=== PATIENT | female | born 1985 | race Caucasian/White ===

== ENCOUNTER → 2017-11-10 19:32 | Observation (INO) ==
[2017-11-10 16:46] LABS: Bilirubin,Urine Negative (Negative); Blood,Urine Negative (Negative); Clarity,Urine Cloudy (Clear); Color,Urine Yellow (Yellow); Glucose,Urine (UA) Normal (Normal); Ketones,Urine 15 mg/dL (Negative); Leukocyte Esterase,Urine Moderate (Negative); Nitrite,Urine Negative (Negative); PH,Urine 6.5 pH Units (5.0-8.0); Protein,Urine 30 mg/dL (Neg-Trace); Specific Gravity,Urine 1.021 (1.010-1.025); Urobilinogen,Urine Normal (Normal)
--- NOTE | 2017-11-10 16:47 | OB/GYN Progress Note ---
Date of Encounter: 11/10/17 Time of Encounter: 16:41 - Assessment and Plan (1) 30 weeks gestation of Current Visit: Yes Status: Acute Patient receives routine care with no history of delivery (2) contractions Current Visit: Yes Status: Acute contractions without cervical dilation. Trial of subcutaneous terbutaline. fibronectin a vaginosis panel pending. Urinalysis pending. Subjective - Subjective Principal diagnosis: 30 weeks w/ cramping Interval history: The patient reports that since 12:30 this afternoon she has had irregular contractions every 9-15 minutes. She reports normal activity. She denies any abnormal vaginal discharge, dysuria or urinary frequency, vaginal bleeding or loss of fluid. She reports no recent intercourse, any change in GI symptoms, specifically denies diarrhea, nausea or vomiting. She does state that she has felt short of breath for the last 4 days intermittently,feeling like it is consistent with changes. She denies any chest pain. She has had mild lower extremity swelling which is equal and bilateral. Antepartum ROS: movement normal, contractions, no loss of fluid, no vaginal bleeding Objective - Vital Signs Vital Signs: Intake and Output 11/10/17 11/10/17 11/10/17 07:59 15:59 23:59 Other: Weight 94.5 kg Patient Weight 11/10/17 23:59 Weight 94.5 kg - Exam FHR: category 1 (140s baseline) Auscultation: bilateral: normal Abdomen: Present: soft, gravid, tenderness (suprapubic) Cervical dilation: closed Cervix effacement: thick station: -3 Comments: Vaginosis panel and fibronectin obtained - Allied health notes Allied health notes reviewed: nursing
[2017-11-10 16:48] LABS: Bacteria,Urine Many per hpf (None-Few); RBC,Urine 0-3 per hpf (0-3); Squamous Epithelial Cell,Urine Many per lpf (None-Few); WBC,Urine 50-100 per hpf (0-3)
[2017-11-10 17:00] LABS: Amphetamine Screen,Urine Negative ng/mL (Cutoff=1000); Barbiturate Screen,Urine Negative ng/mL (Cutoff=200); Benzodiazepines Screen,Urine Negative ng/mL (Cutoff=200); Cannabinoid Screen,Urine Negative ng/mL (Cutoff = 50); Cocaine Screen,Urine Negative ng/mL (Cutoff= 300); Opiate Screen,Urine Negative ng/mL (Cutoff=300); Phencyclidine Screen,Urine Negative ng/mL (Cutoff=25)
[2017-11-10 18:47] LABS: Candida DNA Not Detected (Not Detect); Gardnerella DNA Not Detected (Not Detect); Trichomonas DNA Not Detected (Not Detect)
[~2017-11-10 19:32] MED LIST: Terbutaline 1 MG/ML VIAL SQ ONE
== END | disposition home or self-care (01) ==
LOC: 1NENULAB
PROVIDERS: ADMIT Obstetrics & Gynecology; ATTEND Obstetrics & Gynecology

== ENCOUNTER → 2017-12-27 18:13 | Observation (INO) ==
[2017-12-27 16:30] LABS: Amphetamine Screen,Urine Negative ng/mL (Cutoff=1000); Barbiturate Screen,Urine Negative ng/mL (Cutoff=200); Benzodiazepines Screen,Urine Negative ng/mL (Cutoff=200); Cannabinoid Screen,Urine Negative ng/mL (Cutoff = 50); Cocaine Screen,Urine Negative ng/mL (Cutoff= 300); Opiate Screen,Urine Negative ng/mL (Cutoff=300); Phencyclidine Screen,Urine Negative ng/mL (Cutoff=25)
[2017-12-27 18:03] LABS: Bilirubin,Urine Negative (Negative); Blood,Urine Negative (Negative); Clarity,Urine Cloudy (Clear); Color,Urine Yellow (Yellow); Glucose,Urine (UA) Normal (Normal); Ketones,Urine Trace mg/dL (Negative); Leukocyte Esterase,Urine Trace (Negative); Nitrite,Urine Negative (Negative); Protein,Urine Trace mg/dL (Neg-Trace); Specific Gravity,Urine 1.012 (1.010-1.025); Urobilinogen,Urine Normal (Normal)
--- NOTE | 2017-12-27 18:05 | OB/GYN Progress Note ---
Date of Encounter: 12/27/17 Time of Encounter: 18:02 - Assessment and Plan (1) 36 weeks gestation of Current Visit: Yes Status: Acute (2) Uterine contractions Current Visit: Yes Status: Acute No cervical change on serial cervical exams over 2 hours apart. Patient dexter every 2-3 minutes looking slightly uncomfortable with contractions, patient given option of staying longer for further evaluation or discharge home. Patient states she would rather discharge home and return if contractions become stronger. Discussed with patient importance of hydration due to being outside in hot weather and sun. Discharged home with labor and when to return to triage precautions. Patient verbalizes understanding Subjective - Subjective Interval history: 36+6 weeks gestation. Presents to triage with complaints of contractions. Patient without today and a soft ball game and started having contractions, they became closer together and more intense. Reports good movement, denies leaking of fluid or vaginal bleeding. Antepartum ROS: movement normal, contractions, no loss of fluid, no vaginal bleeding Objective - Vital Signs Vital Signs: Intake and Output 12/27/17 12/27/17 12/27/17 07:59 15:59 23:59 Other: Weight 97.976 kg Patient Weight 12/27/17 23:59 Weight 97.976 kg - Exam FHR: auscultation normal FHR comments: Baseline 135 Abdomen: Present: soft, gravid Cervical dilation: 3-4/80/-2
[2017-12-27 18:06] LABS: Bacteria,Urine Moderate per hpf (None-Few); Hyaline Casts,Urine Few per lpf (None-Few); Squamous Epithelial Cell,Urine Many per lpf (None-Few)
== END | disposition home or self-care (01) ==
LOC: 1NENULAB
PROVIDERS: ADMIT Advanced Practice Midwife; ATTEND Advanced Practice Midwife

== ENCOUNTER 2017-12-28 18:35 | Inpatient (IN) ==
--- NOTE | 2017-12-28 15:33 | OB/GYN History & Physical ---
Date of Encounter: 12/28/17 Time of Encounter: 15:29 Assessment and Plan (1) 37 weeks gestation of Current visit: Yes Status: Acute Admit to labor and delivery for observation of labor Expectant management Labs - CBC and clot to hold Continuous electronic monitoring Pain management plan-epidural Anticipate Dr. Gillette is OB gas operations analyst and available as needed (2) Uterine contractions during Current visit: Yes Status: Acute History of Present Illness Chief complaint: contractions HPI: Ms. Fischer is a 32 year old female with an estimated date of of 01/18/18 at 37 weeks 0 days gestation dated by early ultrasound. She presents with reports of contractions that started around noon yesterday and have increased in frequency and severity beginning at 11 this morning.. She denies leakage of fluid and vaginal bleeding and reports positive movement. Her course has been uncomplicated. She has been seen primarily by Dr. Carter. records are available in her chart and have been reviewed. Labs: AB- GBS- Hep B- HIV- T. Palladium- Rubella immune Varicella immune Past Med Surg Social Fam HX - Past Medical History Medical history: asthma Psychiatric history: no psych history - Past Surgical History Surgical History: other - Social History Smoking Status: Former smoker Smokeless Tobacco Status: No Alcohol use: none Drug use: none - Family History Mother Living Status: Still Living Hx Family Cardiac Disorders: Yes ([place]) Hx Family Respiratory Disorders: No Hx Family Cancer: Yes (Breast) Hx Family GI Disorders: No Hx Family Genitourinary Disorders: No Hx Family Endocrine Disorder: No Hx Family Musculoskeletal Disorders: No Hx Family Neuromuscular Disorders: No Hx Family Neurologic Disorders: No Hx Family HEENT Disorders: No Hx Family Autoimmune Disorders: No Hx Family Reproductive Disorders: No Hx Family Psychosocial Disorders: No Hx Family Medical Disorders: No Obstetrical History - Pregnancies : 4 Para: 1 Term: 1 (07/31/2007, vaginal delivery, 39 weeks, male, 7#12oz) : 0 Ab's: 2 (09/24/12 miscarriage;01/03/13 d&c) Livin Medications and Allergies Flintstones 2 tab PO DAILY 11/10/17 [History] 3 Allergy/AdvReac Type Severity Reaction Status Date / Time Amoxicillin Allergy Hives Verified 07/26/17 09:25 azithromycin AdvReac Nausea Verified 12/28/17 15:22 [From Zithromax Z-Lee] Review of System OB All systems PM: reviewed and no additional remarkable complaints except as stated Exam - Constitutional Constitutional: well developed, well nourished, average body habitus, mild distress - HEENT HEENT: PERRL - Neck Neck exam: full ROM - Lungs Respiratory exam: CTAB - Cardiovascular Cardiovascular exam: RRR, +S1, +S2 - Breasts Breast: bilateral: normal - Abdomen Abdomen: Present: bowel sounds normal, gravid, non tender - Extremities Extremities exam: pedal edema, warm, radial pulses palpable and symmetrical - Vulva Vulva: bilateral: normal - Vagina Vagina: Present: normal moisture - Cervix Dilation: 5 Effacement: 60 Station: -3 - Uterus Uterus exam: Present: normal size, normal contour - Anus/Rectum Anus/Rectum: Present: normal perianal skin Results All other labs normal.
[2017-12-28 18:08] LABS: Amphetamine Screen,Urine Negative ng/mL (Cutoff=1000); Barbiturate Screen,Urine Negative ng/mL (Cutoff=200); Benzodiazepines Screen,Urine Negative ng/mL (Cutoff=200); Cannabinoid Screen,Urine Negative ng/mL (Cutoff = 50); Cocaine Screen,Urine Negative ng/mL (Cutoff= 300); Opiate Screen,Urine Negative ng/mL (Cutoff=300); Phencyclidine Screen,Urine Negative ng/mL (Cutoff=25)
[~2017-12-28 18:35] MED LIST changes: +*HR* Nalbuphine 10 MG/ML AMPUL IVP PRN; +Famotidine 20 MG/2 ML VIAL IVP PRN; +Naloxone 0.4 MG/ML INJ IVP PRN; +Ondansetron 4 MG/2 ML VIAL IVP PRN; -Terbutaline 1 MG/ML VIAL SQ ONE
[2017-12-28] MEDS ORDERED: Ringers Solution, Lactated 1,000 ML ONE (18:40)
[2017-12-28] MEDS ORDERED: Ringers Solution, Lactated 1,000 ML IVC SCH (18:45)
[2017-12-28 19:08] LABS: Basophils % 0.3 %; Eosinophils % 0.3 %; Hematocrit 29.4 % (35.3-44.9); Hemoglobin 10.1 g/dL (11.5-15.4); Immature Granulocytes % 0.4 % (0-4); Lymphocytes # 1.5 K/mcL (0.6-4.6); Lymphocytes % 19.9 %; Mean Corpuscular HGB Conc 34.4 g/dL (31.6-35.5); Mean Corpuscular Hemoglobin 30.1 pg (28.0-33.3); Mean Corpuscular Volume 87.5 fL (83.0-100.0); Mean Platelet Volume 9.7 fL (9.4-12.4); Monocytes # 0.5 K/mcL (0.0-1.3); Monocytes % 7.1 %; Neutrophils # 5.2 K/mcL (1.6-8.9); Platelet Count 291 K/mcL (140-400); Red Blood Count 3.36 M/mcL (3.82-4.97); Red Cell Distribution Width 12.9 % (11.5-14.5)
[2017-12-28] MEDS ORDERED: Bupivacaine-MPF 0.25% 10 ML VIAL EP ONE (19:36)
[2017-12-28] MEDS ORDERED: *HR* FentaNYL (PF) 100 MCG/2 ML VIAL EP ONE (19:36)
[2017-12-28] MEDS ORDERED: Epidural Premix (fent/bupiv) 110 ML EP SCH (19:45)
[2017-12-28] MEDS ORDERED: Epidural Premix (fent/bupiv) 110 ML EP ONE (19:47)
--- NOTE | 2017-12-28 20:55 | Anesthesia Evaluation PreOp ---
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 Epidural with previous , no probs. No FHAP.) : Yes Alcohol Use: none Drug use: none Medications and Allergies Flintstones 2 tab PO DAILY 11/10/17 [History] 3 Allergy/AdvReac Type Severity Reaction Status Date / Time Amoxicillin Allergy Hives Verified 07/26/17 09:25 azithromycin AdvReac Nausea Verified 12/28/17 15:22 [From Zithromax Z-Lee] - Meds/Allergy Pre-op Review Medications Reviewed: Yes Allergies Reviewed: Yes Beta Blockers on Current Med List: No Anesthesia Results - Labs 12/28/17 18:57 Anesthesia Exam VSS and FHTs stable. 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
--- NOTE | 2017-12-28 20:59 | Anesthesia Procedures ---
Date of Encounter: 12/28/17 Time of Encounter: 19:50 Procedures: Anesthesia - Epidural/Spinal Patient ID/Chart reviewed: Yes Patient examined: Yes OB Eval: Gestational age: 37 OB Eval: : 2 OB Eval: Hx Para: 1 OB Eval: Dilated at (cm): 6 OB Eval: Contractions: Non-stressed pattern Consent Obtained: Yes Supplemental Oxygen: None/Room Air Site Prep: Aseptic Technique, Sterile prep and drape, Povidone-Iodine 1% Patient position: upright Local Anesthetic: Lidocaine 1% Amount of Local Anesthetic used: 5 Touhy Needle Gauge: 18 Touhy Needle Depth (cm): 5 Catheter Depth at Skin (cm): 16 Test Dose (1.5% Lido + Epi): Volume given (mls): 3 Test Dose Result: Negative Loading Dose: 0.25% Marcaine (mls): 8 Loading Dose: Fentanyl (mcg): 100 Loading Dose Administered: Thru Catheter Infusion Med: 0.125% Bupivacaine w/ 2 mcg/ml Fentanyl Infusion Rate (mls/hr): [address]: Tegaderm, Tape Interspace Used: L3-L4 Loss of Resistance (CARY): Yes Blood: No CSF: No Paresthesia: No Vitals + FHT's: 3 Vital Signs Time 1950 2005 2009 2014 BP 138/84 135/74 125/67 116/61 Pulse 105 93 84 92 FHTs 120 120 130 130
--- NOTE | 2017-12-28 21:22 | OB Labor Progress Note ---
Date of Encounter: 12/28/17 Time of Encounter: 21:20 Labor Progress Note - Subjective Subjective: Patient comfortable with epidural. - Cervix Cervix: 6-7/60/-2 - Heart Tones Heart Tones: Baseline 130 Moderate variability Accelerations present 15 x 15 Few decelerations with 1 deep deceleration FHR category II - [place]: Contractions every 2-5 minutes and palpate moderate - Interventions Interventions: SVE Peanut ball - Plan Plan: Continue expectant management Use peanutball for frequent position changes Anticipate spontaneous vaginal delivery
--- NOTE | 2017-12-28 23:12 | OB Labor Progress Note ---
Date of Encounter: 12/28/17 Time of Encounter: 23:10 Labor Progress Note - Subjective Subjective: Patient remains comfortable with epidural. - Cervix Cervix: 6-7/60/-2 - Heart Tones Heart Tones: Baseline 130 Moderate variability Accelerations present 15 x 15 No decelerations FHR category I - [place]: Condition contractions every 5-7 minutes and palpate moderate - Interventions Interventions: SVE Start Pitocin - Plan Plan: Continue expectant management Start Pitocin and increased per protocol to adequate contraction pattern Continue peanut ball use Anticipate vaginal delivery
[2017-12-28] MEDS ORDERED: Oxytocin 20 units/ LR 1000 mL 20 UNIT/1,000 ML BAG IVC SCH (23:15)
--- NOTE | 2017-12-29 01:24 | OB Labor Progress Note ---
Date of Encounter: 12/29/17 Time of Encounter: 01:22 Labor Progress Note - Subjective Subjective: Patient is very uncomfortable with epidural and is requesting a bolus for pain management. - Cervix Cervix: 7/60/-2 - Heart Tones Heart Tones: Baseline 125 Moderate variability Accelerations present 15 x 15 Few variable decelerations FHR category I - [place]: Contractions every 3-5 minutes and palpate moderate - Interventions Interventions: [place] Peanut Ball - Plan Plan: Continue expectant management Continue Pitocin augmentation Bolus epidural Continue peanut ball Anticipate vaginal delivery
[2017-12-29] MEDS ORDERED: *HR* FentaNYL (PF) 100 MCG/2 ML VIAL ONE (01:27)
[2017-12-29] MEDS ORDERED: Bupivacaine-MPF 0.25% 10 ML VIAL ONE (01:28)
[2017-12-29] MEDS ORDERED: Epidural Premix (fent/bupiv) 110 ML EP ONE ×2 (02:09→05:57)
--- NOTE | 2017-12-29 03:10 | OB Labor Progress Note ---
Date of Encounter: 12/29/17 Time of Encounter: 03:08 Labor Progress Note - Subjective Subjective: Pt comfortable with epidural. - Cervix Cervix: 7/60/-2 - Heart Tones Heart Tones: Baseline 125 Moderate variability Accelerations present 15x15 No decelerations FHR category I - [place]: Contractions q 1-3 minutes and palpate mild to moderate - Interventions Interventions: SVE AROM - meconium IUPC - Plan Plan: Continue expectant management Increase pitocin prn Continue position changes Anticipate
[2017-12-29] MEDS ORDERED: Lidocaine/EPI 1:200k 2% PF 20 ML VIAL ONE (03:53)
--- NOTE | 2017-12-29 08:07 | OB/GYN Procedure Note ---
Delivery - Delivery Date: 12/29/17 Provider: Bridget Lehman Intrapartum events: meconium, prolonged labor- > = 20hr Delivery induction: none Delivery augmentation: rupture of membranes, pitocin Delivery monitor: external FHT, external uterine, internal uterine Anesthesia: local, epidural Quantitated Blood Loss: 150 - Infant (s) A Delivery Date: 12/29/17 Delivery Time: 06:40 Presentation: vertex Position: NEIL Route of delivery: Gender: Male Viability: Viable Pounds: 8 Ounces: 0 Weight Gram: 3.61 kg at 1 minute: 8 at 5 mins: 9 Shoulder Dystocia: not encountered Specimens collected: cord blood Placenta: spontaneous Cord: nuchal cord (neck/arm/body), 3 umbilical vessels, delivered through nuchal - Repair Episiotomy: none Laceration Description: Perineal - 2nd Degree - Complications Delivery complications: none Delivery comments: Ms. Fischer is a 32-year-old G5 now P2032 who was admitted for active labor. She progressed with Pitocin augmentation and AROM to the second stage of labor. She pushed for 40 minutes. She delivered a viable male infant, NEIL over a second-degree laceration. The infant was placed on the maternal abdomen where the mouth and nares were suctioned by nursery. A nuchal cord was identified to be wrapped around the neck body and left arm of the . The infant was delivered through the nuchal cord. scores were 8 at 1 minute and 9 at 5 minutes. Infant weight was 8 lbs. 0 oz. The placenta delivered ([place]) spontaneously, intact, with a three-vessel cord. Inspection revealed only the second-degree perineal laceration. The laceration was repaired with 3-0 Vicryl. The uterus was firm with no active bleeding. The repair was done under epidural and local anesthesia. EBL was 150 mL. Placenta and umbilical artery blood gas were not sent. There were no complications during the procedure. Mom and baby are cuddling following delivery. - Disposition Mom disposition: stable in LDR Bostic disposition: stable in LDR
[2017-12-29] MEDS ORDERED: Rho Immune Globulin 1,500 UNIT SYRINGE IM PRN (09:29)
[2017-12-29] MEDS ORDERED: Benzocaine/Menthol 56 GM AEROSOL SPRAY TP PRN (09:29)
[2017-12-29] MEDS ORDERED: Acetaminophen 325 MG TABLET PO PRN (09:29)
[2017-12-29] MEDS ORDERED: Oxytocin 20 units/ LR 1000 mL 20 UNIT/1,000 ML BAG IVC SCH (09:29)
[2017-12-29] MEDS: Prenatal Vit/FA 1 EACH TABLET PO SCH (10:14)
[2017-12-29] MEDS: Ibuprofen 600 MG TABLET PO PRN ×2 (10:14→19:49)
[2017-12-30] MEDS: Ibuprofen 600 MG TABLET PO PRN (03:21)
[2017-12-30 07:55] VITALS: BP 131/82
--- NOTE | 2017-12-30 09:12 | Discharge Summary ---
Date of Encounter: 12/30/17 Time of Encounter: 09:09 - Discharge Diagnosis (1) Vaginal delivery Priority: Primary Status: Acute Comments: Pt meeting all milestones. - Discharge Medications Prescriptions: Ibuprofen [Motrin] 600 mg PO Q6HR PRN #30 tablet PRN Reason: Cramping Docusate [Colace] 100 mg PO BID #30 capsule Home Medications: Flintstones 2 tab PO DAILY 11/10/17 [History] Benzocaine/Menthol Spearman [Dermoplast Spearman] 1 appl TP QID PRN aerosol 12/30/17 [Rx] Docusate [Colace] 100 mg PO BID #30 capsule 12/30/17 [Rx] Ibuprofen [Motrin] 600 mg PO Q6HR PRN #30 tablet 12/30/17 [Rx] Vit/FA 1 each PO DAILY tablet 12/30/17 [Rx] Allergies/Adverse Reactions: 3 Allergy/AdvReac Type Severity Reaction Status Date / Time Amoxicillin Allergy Hives Verified 07/26/17 09:25 azithromycin AdvReac Nausea Verified 12/28/17 15:22 [From Zithromax Z-Lee] Data Procedures and tests throughout hospitalization: Laboratory Tests 12/28/17 12/28/17 12/29/17 16:19 18:57 08:10 WBC 7.3 RBC 3.36 L Hgb 10.1 L Hct 29.4 L MCV 87.5 MCH 30.1 MCHC 34.4 RDW 12.9 Plt Count 291 MPV 9.7 Immature Gran % 0.4 Seg Neutrophils % 72.0 Lymphocytes % 19.9 Monocytes % 7.1 Eosinophils % 0.3 Basophils % 0.3 Neutrophils # 5.2 Lymphocytes # 1.5 Monocytes # 0.5 Eosinophils # 0.0 Basophils # 0.0 Urine Opiates Screen Negative Ur Barbiturates Screen Negative Ur Phencyclidine Scrn Negative Ur Amphetamines Screen Negative U Benzodiazepines Scrn Negative Urine Cocaine Screen Negative U Marijuana (THC) Screen Negative Screen NEGATIVE Baby's Blood Type B RH POSITIVE Mother's Blood Type AB RH NEGATIVE Rhogam Indicated YES Rhogam Req for Mother 1 Labs on day of discharge: Labs from last 24 hours 12/29/17 08:10 Screen NEGATIVE Baby's Blood Type B RH POSITIVE Mother's Blood Type AB RH NEGATIVE Rhogam Indicated YES Rhogam Req for Mother 1 Date of admission: 12/28/17 18:35 Primary care physician: PCP NONE Consults: 12/29/17 09:29 Consult to [facility] [CONS] Routine Comment: Vaginal delivery, consult needed Discharging clinician: Gia Nam Anticipated date of discharge: 12/30/17 - Patient Status Disposition: Home, Self-Care Condition: Good Functional capacity at discharge: independent ambulation Overall status at discharge: patient is progressing back to baseline - Discharge Instructions Instructions: Vaginal Delivery (DC) Follow Up With: Kaitlyn Carter MD [Partnered Physician] - 01/27/18 2:30 pm NONE,PCP [Primary Care Provider] - - Diet and Activity Activity: increase activity as tolerated Diet: regular diet Hospital Course Reason for admission: active labor Delivery: Episiotomy: none Laceration: 2nd degree Other procedures: none complications: none Discharge diagnosis: IUP at term delivered baby: male Hospital course: - Delivery Date: 12/29/17 Provider: Bridget Lehman Intrapartum events: meconium, prolonged labor- > = 20hr Delivery induction: none Delivery augmentation: rupture of membranes, pitocin Delivery monitor: external FHT, external uterine, internal uterine Anesthesia: local, epidural Quantitated Blood Loss: 150 - Infant (s) Infant A Delivery Date: 12/29/17 Infant Delivery Time: 06:40 Presentation: vertex Position: NEIL Route of delivery: Gender: Male Viability: Viable Pounds: 8 Ounces: 0 Weight Gram: 3.61 kg at 1 minute: 8 at 5 mins: 9 Shoulder Dystocia: not encountered Specimens collected: cord blood Placenta: spontaneous Cord: nuchal cord (neck/arm/body), 3 umbilical vessels, delivered through nuchal - Repair Episiotomy: none Laceration Description: Perineal - 2nd Degree - Complications Delivery complications: none - Disposition Mom disposition: home PPD1 disposition: home with mother, bottle feeding Time Attestation: Total time spent providing and/or coordinating discharge services: Time Spent: Less than 30 minutes Exam - Constitutional Vitals: Temp Pulse Resp BP Pulse Ox 97.6 F 97 14 131/82 99 12/30/17 07:54 12/30/17 07:54 12/30/17 07:54 12/30/17 07:54 12/30/17 07:54 General appearance IM: A&O X 3 - Respiratory Respiratory exam: Present: CTAB - Cardiovascular Cardiovascular exam IM: Present: RRR, +S1, +S2 - GI/Abdominal GI/Abdominal exam IM: soft - Uterine Tone: Firm Uterus Position: At Umbilicus - Extremities Exam Extremities exam IM: Present: pedal edema (1+ bilaterally) - Neurological Exam Neurological exam: normal gait - Psychiatric Additional comments: reports tired but otherwise good mood, declines contraception until PPV
[2017-12-30] MEDS: Prenatal Vit/FA 1 EACH TABLET PO SCH (11:48)
== END 2017-12-30 15:28 | disposition home or self-care (01) | DRG 775 ==
LOC: 1NENULAB → 1NENUOBS 12-29 09:26
PROVIDERS: ADMIT Obstetrics & Gynecology; ATTEND Obstetrics & Gynecology